=== PATIENT | female | born 1985 | race Caucasian/White ===

== ENCOUNTER 2021-02-28 07:12 | Emergency (ER) | payer BC ==
[2021-02-28 07:52] LABS: AMPHETAMINES,URINE NEGATIVE (NEGATIVE); BARBITURATES,URINE NEGATIVE (NEGATIVE); BENZODIAZEPINE,URINE NEGATIVE (NEGATIVE); MDMA (ECSTASY), URINE NEGATIVE (NEGATIVE); METHADONE,URINE NEGATIVE (NEGATIVE); METHAMPHETAMINES,URINE NEGATIVE (NEGATIVE); OPIATES,URINE NEGATIVE (NEGATIVE); OXYCODONE,URINE NEGATIVE (NEGATIVE); PHENCYCLIDINE,URINE NEGATIVE (NEGATIVE); TCA,URINE NEGATIVE (NEGATIVE)
[2021-02-28 07:53] LABS: CHLORIDE,CL 102 mEq/L (98-106); SODIUM,NA 140 mEq/L (136-145)
[2021-02-28 08:05] VITALS: BP 130/86; PULSE 81
--- NOTE | 2021-02-28 08:22 | EDM.PDOC ---
ED HPI GENERAL MEDICAL PROBLEM - General Chief Complaint: General Stated Complaint: seizure at work Time Seen by Provider: 02/28/21 07:50 Source of Information: Reports: Patient, RN History Limitations: Reports: No Limitations - History of Present Illness INITIAL COMMENTS - FREE TEXT/NARRATIVE: Pt states that she was at work and she became lightheaded and felt weak and sat down and she became unresponsive. coworkers state that she was jerking and she wasn't breathing so they did several chest compressions and did mouth to mouth. They are unsure how long it lasted. When she woke up she did not have loss of bowel or bladder. She doesn't remember being confused. She denies any headaches, double or blurred vision. She was oriented to place and knew everybody around her. She denies any chest pain or SOB. She relates that she has had at least 10 of these episodes in her life since the 6th grade. She has never been evaluated for seizures in the past as it was recommended but not followed up with it. At least 2 of these episodes resulted in stitches because of them. Currently she states that she feels well except may be a little tired. - Related Data Allergies Allergy/AdvReac Type Severity Reaction Status Date / Time No Known Allergies Allergy Verified 03/20/15 15:32 Home Meds: Home Meds Norethindrone-Ethin. Estradiol [Cyclafem 1-35-28 Tablet] 1 tab PO DAILY 03/20/15 [History] Montelukast [Singulair] 1 tab PO DAILY 02/28/21 [History] Past Medical History Cardiovascular History: Reports: Heart Murmur Other Cardiovascular History: reports heart murmur 10 years ago when she fainted and had seizure like activity- never diagnosed with seizure disorder but had echo for followup and reports no findings Other Neuro History: fainting Endocrine/Metabolic History: Reports: Other (See Below) Other Endocrine/Metabolic History: 15 years ago was told she had fluctuating thyroid and was placed on synthroid- then fainted and came to ER and was told it was an overdose on synthroid so was taken off of it - Past Surgical History Other HEENT Surgeries/Procedures: lazy eye correction Social & Family History - Tobacco Use Tobacco Use Status *Q: Never Tobacco User - Alcohol Use Days Per Week of Alcohol Use: 4 Number of Drinks Per Day: 1 Total Drinks Per Week: 4 - Recreational Drug Use Recreational Drug Use: No ED ROS GENERAL - Review of Systems Review Of Systems: See Below Constitutional: Reports: Fatigue. Denies: Fever, Chills, Weakness HEENT: Reports: No Symptoms Respiratory: Reports: No Symptoms Cardiovascular: Reports: No Symptoms GI/Abdominal: Reports: No Symptoms : Reports: No Symptoms Musculoskeletal: Reports: No Symptoms Skin: Reports: No Symptoms Neurological: Reports: Syncope. Denies: Confusion, Dizziness, Headache, Numbness, Tingling Psychiatric: Denies: Anxiety, Confusion ED EXAM, GENERAL - Physical Exam Exam: See Below Exam Limited By: No Limitations General Appearance: Alert, WD/WN, No Apparent Distress Eye Exam: Bilateral Eye: PERRL Ears: Normal External Exam, Normal Canal, Normal TMs Nose: Normal Inspection Throat/Mouth: Normal Inspection, Normal Oropharynx Head: Atraumatic, Normocephalic Neck: Normal Inspection, Supple, Non-Tender, Full Range of Motion Respiratory/Chest: No Respiratory Distress, Lungs Clear, Normal Breath Sounds Cardiovascular: Regular Rate, Rhythm, No Edema, No Murmur GI/Abdominal: Normal Bowel Sounds, Soft, Non-Tender Back Exam: Normal Inspection Extremities: Normal Inspection, Normal Range of Motion, Non-Tender, No Pedal Edema, Normal Capillary Refill Neurological: Alert, Oriented Psychiatric: Normal Affect, Normal Mood Skin Exam: Warm, Dry, Intact Course - Vital Signs Last Recorded V/S: Last Vital Signs Temp 96.3 F L 02/28/21 07:25 Pulse 81 02/28/21 08:00 Resp 16 02/28/21 08:00 BP 130/86 02/28/21 08:00 Pulse Ox 100 02/28/21 08:00 - Orders/Labs/Meds Orders: Active Orders 24 hr Category Date Time Status CULTURE URINE [RM] Routine Lab 02/28/21 07:36 Received Labs: Laboratory Tests 02/28/21 02/28/21 02/28/21 Range/Units 07:18 07:18 07:18 WBC 12.4 H (4.0-11.0) 10^3/uL RBC 4.30 (4.00-5.50) x10^6/uL Hgb 13.8 (12.0-16.0) g/dL Hct 41.7 (37.0-47.0) % MCV 97.0 (83.0-97.0) fL MCH 32.1 H (27.0-32.0) pg MCHC 33.1 (32.0-36.0) g/dL RDW Coeff of Vida 12.5 (11.0-15.0) % Plt Count 190 (150-400) 10^3/uL Immature Gran % (Auto) 0.2 (0.0-4.9) % Neut % (Auto) 77.7 H (41-71) % Lymph % (Auto) 10.8 L (24-44) % Garfield % (Auto) 10.4 H (0-10) % Eos % (Auto) 0.4 (0-6) % Baso % (Auto) 0.5 (0-1) % Neut # (Auto) 9.60 H (1.80-8.00) x10^3/uL Lymph # (Auto) 1.34 (0.60-5.00) 10^3/uL Garfield # (Auto) 1.28 (0.00-1.50) 10^3/uL Eos # (Auto) 0.05 (0.00-1.50) 10^3/uL Baso # (Auto) 0.06 (0.00-0.50) 10^3/uL Immature Gran # (Auto) 0.03 (0.00-0.49) 10^3/uL PT 11.4 (9.7-12.3) SEC INR 1.05 (0.92-1.18) Sodium (136-145) mEq/L Potassium (3.5-5.0) mEq/L Chloride (98-106) mEq/L Carbon Dioxide (21-32) mmol/L BUN (7-18) mg/dL Creatinine (0.6-1.0) mg/dL Est Cr Clr Drug Dosing Estimated GFR (MDRD) (>=60) mL/min Glucose (75-99) mg/dL Calcium (8.4-10.1) mg/dL Total Bilirubin (0.0-1.0) mg/dL AST (15-37) U/L ALT (12-78) U/L Alkaline Phosphatase (46-116) U/L Lactate Dehydrogenase (100-190) U/L Creatine Kinase (21-215) U/L Troponin I High Sens (<=51) pg/mL Total Protein (6.4-8.2) g/dL Albumin (3.4-5.0) g/dL Urine Color (YELLOW) Urine Appearance (CLEAR) Urine pH (4.5-8.0) Ur Specific [place] (1.003-1.020) Urine Protein (NEGATIVE) mg/dL Urine Glucose (UA) (NEGATIVE) mg/dL Urine Ketones (NEGATIVE) mg/dL Urine Occult Blood (NEGATIVE) Urine Nitrite (NEGATIVE) Urine Bilirubin (NEGATIVE) Urine Urobilinogen (0.2-1.0) EU/dL Ur Leukocyte Esterase (NEGATIVE) Urine RBC (0-5) /HPF Urine WBC (0-5) /HPF Urine Bacteria (NOT SEEN) /HPF Urinalysis Comment Urine Opiates Screen Negative (NEGATIVE) Ur Oxycodone Screen Negative (NEGATIVE) Urine Methadone Screen Negative (NEGATIVE) Ur Barbiturates Screen Negative (NEGATIVE) U Tricyclic Antidepress Negative (NEGATIVE) Ur Phencyclidine Scrn Negative (NEGATIVE) Ur Amphetamine Screen Negative (NEGATIVE) U Methamphetamines Scrn Negative (NEGATIVE) Urine MDMA Screen Negative (NEGATIVE) U Benzodiazepines Scrn Negative (NEGATIVE) Urine Cocaine Screen Negative (NEGATIVE) U Marijuana (THC) Screen Negative (NEGATIVE) 02/28/21 02/28/21 Range/Units 07:18 07:36 WBC (4.0-11.0) 10^3/uL RBC (4.00-5.50) x10^6/uL Hgb (12.0-16.0) g/dL Hct (37.0-47.0) % MCV (83.0-97.0) fL MCH (27.0-32.0) pg MCHC (32.0-36.0) g/dL RDW Coeff of Vida (11.0-15.0) % Plt Count (150-400) 10^3/uL Immature Gran % (Auto) (0.0-4.9) % Neut % (Auto) (41-71) % Lymph % (Auto) (24-44) % Garfield % (Auto) (0-10) % Eos % (Auto) (0-6) % Baso % (Auto) (0-1) % Neut # (Auto) (1.80-8.00) x10^3/uL Lymph # (Auto) (0.60-5.00) 10^3/uL Garfield # (Auto) (0.00-1.50) 10^3/uL Eos # (Auto) (0.00-1.50) 10^3/uL Baso # (Auto) (0.00-0.50) 10^3/uL Immature Gran # (Auto) (0.00-0.49) 10^3/uL PT (9.7-12.3) SEC INR (0.92-1.18) Sodium 140 (136-145) mEq/L Potassium 3.7 (3.5-5.0) mEq/L Chloride 102 (98-106) mEq/L Carbon Dioxide 27 (21-32) mmol/L BUN 9 (7-18) mg/dL Creatinine 0.7 (0.6-1.0) mg/dL Est Cr Clr Drug Dosing TNP Estimated GFR (MDRD) > 60 (>=60) mL/min Glucose 99 (75-99) mg/dL Calcium 8.7 (8.4-10.1) mg/dL Total Bilirubin 0.9 (0.0-1.0) mg/dL AST 19 (15-37) U/L ALT 18 (12-78) U/L Alkaline Phosphatase 61 (46-116) U/L Lactate Dehydrogenase 163 (100-190) U/L Creatine Kinase 109 (21-215) U/L Troponin I High Sens < 4 (<=51) pg/mL Total Protein 7.6 (6.4-8.2) g/dL Albumin 3.8 (3.4-5.0) g/dL Urine Color Yellow (YELLOW) Urine Appearance Clear (CLEAR) Urine pH 6.0 (4.5-8.0) Ur Specific [place] 1.015 (1.003-1.020) Urine Protein Negative (NEGATIVE) mg/dL Urine Glucose (UA) Negative (NEGATIVE) mg/dL Urine Ketones Negative (NEGATIVE) mg/dL Urine Occult Blood Small H (NEGATIVE) Urine Nitrite Positive H (NEGATIVE) Urine Bilirubin Negative (NEGATIVE) Urine Urobilinogen 0.2 (0.2-1.0) EU/dL Ur Leukocyte Esterase Moderate H (NEGATIVE) Urine RBC 5-10 H (0-5) /HPF Urine WBC 50-75 H (0-5) /HPF Urine Bacteria Many H (NOT SEEN) /HPF Urinalysis Comment Urine Opiates Screen (NEGATIVE) Ur Oxycodone Screen (NEGATIVE) Urine Methadone Screen (NEGATIVE) Ur Barbiturates Screen (NEGATIVE) U Tricyclic Antidepress (NEGATIVE) Ur Phencyclidine Scrn (NEGATIVE) Ur Amphetamine Screen (NEGATIVE) U Methamphetamines Scrn (NEGATIVE) Urine MDMA Screen (NEGATIVE) U Benzodiazepines Scrn (NEGATIVE) Urine Cocaine Screen (NEGATIVE) U Marijuana (THC) Screen (NEGATIVE) - Re-Assessments/Exams Free Text/Narrative Re-Assessment/Exam: 02/28/21 0815 Discussed normal lab work with the pt. She does have a UTI that will be treated. She is asymptomatic from this at this time. Recommend that she has neurology consult as she has had multiple episodes of this in the past with out a workup. She is in agreement of this and would like referral to [facility]. Departure - Departure Time of Disposition: :21 Disposition: Home, Self-Care 01 Condition: Good Clinical Impression: Syncope Qualifiers: Syncope type: unspecified Qualified Code(s): R55 - Syncope and collapse UTI (urinary tract infection) Qualifiers: Urinary tract infection type: acute cystitis Hematuria presence: with hematuria Qualified Code(s): N30.01 - Acute cystitis with hematuria - Discharge Information *PRESCRIPTION DRUG MONITORING PROGRAM REVIEWED*: Not Applicable *COPY OF PRESCRIPTION DRUG MONITORING REPORT IN PATIENT ELILE: Not Applicable Instructions: Urinary Tract Infection, Adult, Syncope, [id number] Referrals: Marisel London PA-C [Primary Care Provider] - Forms: ED Department Discharge Additional Instructions: No driving today Go home and rest today. If feeling well then can return to work tomorrow Push fluids as much as possible Bactrim DS 1 tablet twice a day for 10 days Someone will call you to set up appt for neurology appt for a consult regarding syncope vs seizures If any concerns return to the ER immediately. Sepsis Event Note (ED) - Evaluation Sepsis Screening Result: No Definite Risk - Focused Exam Vital Signs: Vital Signs Temp Pulse Resp BP Pulse Ox 02/28/21 08:00 81 16 130/86 100 02/28/21 07:25 96.3 F L 79 16 141/90 H 98 - My Orders Last 24 Hours: My Active Orders 02/28/21 07:36 CULTURE URINE [RM] Routine - Assessment/Plan Last 24 Hours: My Active Orders 02/28/21 07:36 CULTURE URINE [RM] Routine Plan: will schedule appt with neurology when able to be seen. recheck if any concerns or questions.
== END 2021-02-28 08:45 | disposition home or self-care (01) ==
LOC: CC.ED 07:12
DX: R55 Syncope and collapse (principal); N30.01 Acute cystitis with hematuria
CPT/HCPCS: 36415; 80053; 80305-QW; 81001; 82550; 83615; 84484; 85025; 85610; 87086; 87088; 87186; 93005; 99284-25